=== PATIENT | male | born 1995 | race Caucasian/White ===

== ENCOUNTER 2018-05-19 16:49 | Emergency (ER) | payer MEDICAID ==
[~2018-05-19] VITALS: Ht 177.8 cm; Wt 104.3 kg
[2018-05-19 16:55] VITALS: BP 146/67
--- NOTE | 2018-05-19 17:00 | NUR ---
23 T/O M PRESENTS TO THE ED W/C/O RT KNEE PAIN. PT STATES HE WAS PLAYING SOCCER AND FELT IT POP. AND FELT IT POP BACK INTO PLACE. SWELLING NOTED. NO OBVIOUS DEFORMATIES. +CMS. PT DENIES N/V/D; SKIN IS INTACT; AAOX4, PERRL, WITH EVEN AND STEADY GAIT ON CRUTCHES FROM HIS FRIEND; LUNGS CLEAR BL, BREATHING UNLABORED; HR EVEN AND REGULAR, BL PERIPHERAL PULSES PRESENT; PT DENIES ANY FEVER, CP, SOB, OR COUGH AT THIS TIME; PT STATES 9/10 PAIN AT THIS TIME; VSS; PATIENT POSITIONED FOR COMFORT; HOB ELEVATED; BEDRAILS UP X2; BED DOWN. NO PMH NKA
[2018-05-19] MEDS ORDERED: IBUPROFEN 600 MG TAB PO ONE (17:40)
[2018-05-19 18:30] VITALS: BP 138/72
--- NOTE | 2018-05-19 18:30 | NUR ---
Patient discharged with v/s stable. Written and verbal after care instructions given and explained. Patient alert, oriented and verbalized understanding of instructions. Ambulatory with steady gait AND CRUTCHES. All questions addressed prior to discharge. ID band removed. Patient advised to follow up with PMD. Rx of IBUPROFEN 600MG AND TRAMADOL 50MG given. Patient educated on indication of medication including possible reaction and side effects. Opportunity to ask questions provided and answered.
== END 2018-05-19 18:30 | disposition home or self-care (01) ==
LOC: MED 16:49
DX: S83.91XA Sprain of unspecified site of right knee, initial encounter (principal); M25.461 Effusion, right knee; W03.XXXA Other fall on same level due to collision with another person, initial encounter; Y93.66 Activity, soccer; Y92.89 Other specified places as the place of occurrence of the external cause; Y99.8 Other external cause status
CPT/HCPCS: 29505; 73562; 99283; Q0092

== ENCOUNTER 2018-08-09 18:43 | Emergency (ER) | payer MEDICAID ==
[~2018-08-09] VITALS: Ht 177.8 cm; Wt 108.4 kg
[2018-08-09 19:04] VITALS: BP 151/96
--- NOTE | 2018-08-09 19:37 | NUR ---
PT AMBULATED TO BED 6
--- NOTE | 2018-08-09 19:40 | NUR ---
23 Y MALE BIB SELF C/O 1 INCH LAC ON RIGHT HAND . PER PT, HE WAS AT WORK AND HIT HIS HAND ON A PIECE OF METAL. BLEEDING CONTROLLED AT THIS TIME. +CMS. AA0X4, VSS AT THIS TIME. BED IS DOWN, LOCKED, BED RAIL X 1, ERMD NOTIFIED. PMH:NONE
[2018-08-09] MEDS ORDERED: LIDOCAINE 1% 500 MG/50 ML VIAL INJ SCH (19:50)
--- NOTE | 2018-08-09 20:01 | NUR ---
LIDOCAINE AT BEDSIDE FOR
[2018-08-09] MEDS ORDERED: LIDOCAINE MPF 1% 5mL VIAL ONE (20:04)
--- NOTE | 2018-08-09 20:07 | NUR ---
LACERATION KIT SET UP
--- NOTE | 2018-08-09 20:17 | NUR ---
DR MYRICK AT BEDSIDE FOR LACERATION REPAIR
--- NOTE | 2018-08-09 20:40 | NUR ---
BACITRACIN WAS PLACED ON PTS WOUND COVERRED WITH A NON ADHIRINT GAUZE AND WRAPPED WITH A 2 INCH KADI WRAP
[2018-08-09] MEDS ORDERED: BACITRACIN OINT 500 UNITS/GM PKT TP ONE (20:41)
[2018-08-09 20:45] VITALS: BP 148/91
== END 2018-08-09 20:45 | disposition home or self-care (01) ==
LOC: MED 18:43
DX: S61.411A Laceration without foreign body of right hand, initial encounter (principal); W45.8XXA Other foreign body or object entering through skin, initial encounter; Y93.89 Activity, other specified; Y92.89 Other specified places as the place of occurrence of the external cause; Y99.8 Other external cause status
CPT/HCPCS: 12001; 90471; 90715; 99283; J2001

== ENCOUNTER 2023-02-01 16:56 | Emergency (ER) | payer SELFPAY ==
[~2023-02-01] VITALS: Ht 177.8 cm; Wt 90.7 kg
[2023-02-01 17:14] VITALS: BP 132/80; PULSE 68; RESP 18; TEMP 98.2; O2SAT 99
[2023-02-01] MEDS ORDERED: IBUPROFEN 400 MG TAB PO ONE (18:20)
[2023-02-01 20:02] VITALS: BP 132/80; PULSE 68; RESP 18; TEMP 98.2; O2SAT 99
== END 2023-02-01 20:02 | disposition home or self-care (01) ==
LOC: MED 16:56
DX: S83.91XA Sprain of unspecified site of right knee, initial encounter (principal); X58.XXXA Exposure to other specified factors, initial encounter; Y92.89 Other specified places as the place of occurrence of the external cause; Y93.89 Activity, other specified; Y99.8 Other external cause status
CPT/HCPCS: 29505; 29515; 73562; 99283